=== PATIENT | female | born 1990 | race American Indian/Alaskan Native ===

== ENCOUNTER 2017-02-06 06:01 | Emergency (ER) | payer SELFPAY ==
[2017-02-06] MEDS ORDERED: TYLENOL ONE (06:09)
[2017-02-06] MEDS ORDERED: TYLENOL PO ONE (06:23)
[2017-02-06] MEDS ORDERED: NORVASC PO ONE (08:53)
--- NOTE | 2017-02-06 09:21 | Emergency Department Report ---
- General Chief complaint: Skin/Abscess/Foreign Body Stated complaint: INSECT BITE/FOREHEAD SWOLLEN Time Seen by Provider: 02/06/17 08:52 Source: patient Mode of arrival: Ambulatory Limitations: No Limitations - History of Present Illness Initial comments: Patient presents today with what she describes as an insect bite to the right forehead she denies any drainage from the area and admits to pruritus. She states that she woke up Saturday morning which was 3 days ago with a small bump and it has progressively gotten larger. She denies seeing any insect and just assumes that it was an insect. She does admit to swelling of the right quaker area and admits to numbness on superior aspect of the right ear. She denies fever, chills, nausea, vomiting, abdominal pain. She has been taken Benadryl for the itch. She admits to the pain now a 06/03. She also presents with blood pressure of 158/116, she states she has not been treated for hypertension in the past. She does states that it is always elevated. She does not have a primary care physician. MD complaint: rash -: Sudden Tetanus Up to Date: yes Location: head Severity: moderate Severity scale (0 -10): 7 Quality: aching Consistency: constant Improves with: none Worsens with: none Associated symptoms: denies other symptoms, itching Treatments Prior to Arrival: none - Related Data Previous Rx's Medication Instructions Recorded Last Taken Type Hydroxyzine HCl 25 mg PO BID #10 tablet 02/06/17 Unknown Rx Sulfamethoxazole/Trimethoprim 1 each PO BID #20 tablet 02/06/17 Unknown Rx [Bactrim DS TAB] amLODIPine [Norvasc] 5 mg PO DAILY #30 tab 02/06/17 Unknown Rx Allergies Allergy/AdvReac Type Severity Reaction Status Date / Time No Known Allergies Allergy Verified 02/06/17 06:17 Abscess Boil HPI - HPI Chief Complaint: Skin/Abscess/Foreign Body Stated Complaint: INSECT BITE/FOREHEAD SWOLLEN Time Seen by Provider: 02/06/17 08:52 Home Medications: Previous Rx's Medication Instructions Recorded Last Taken Type Hydroxyzine HCl 25 mg PO BID #10 tablet 02/06/17 Unknown Rx Sulfamethoxazole/Trimethoprim 1 each PO BID #20 tablet 02/06/17 Unknown Rx [Bactrim DS TAB] amLODIPine [Norvasc] 5 mg PO DAILY #30 tab 02/06/17 Unknown Rx Allergies/Adverse Reactions: Allergies Allergy/AdvReac Type Severity Reaction Status Date / Time No Known Allergies Allergy Verified 02/06/17 06:17 ED Review of Systems ROS: Stated complaint: INSECT BITE/FOREHEAD SWOLLEN Other details as noted in HPI Constitutional: denies: chills, fever Eyes: denies: eye pain, eye discharge, vision change ENT: denies: ear pain, throat pain Respiratory: denies: cough, shortness of breath, wheezing Cardiovascular: denies: chest pain, palpitations Gastrointestinal: denies: abdominal pain, nausea, vomiting, diarrhea Genitourinary: denies: urgency, dysuria, discharge Musculoskeletal: denies: back pain, joint swelling, arthralgia Skin: rash, pruritus. denies: lesions Neurological: denies: headache, weakness, paresthesias ED Past Medical Hx - Past Medical History Previous Medical History?: Yes Hx Hypertension: Yes Hx Asthma: Yes Additional medical history: Obesity - Surgical History Past Surgical History?: No - Social History Smoking Status: Never Smoker Substance Use Type: None - Medications Home Medications: Home Medications Medication Instructions Recorded Confirmed Last Taken Type Hydroxyzine HCl 25 mg PO BID #10 tablet 02/06/17 Unknown Rx Sulfamethoxazole/Trimethoprim 1 each PO BID #20 tablet 02/06/17 Unknown Rx [Bactrim DS TAB] amLODIPine [Norvasc] 5 mg PO DAILY #30 tab 02/06/17 Unknown Rx ED Physical Exam - General Limitations: No Limitations General appearance: alert, in no apparent distress - Head Head exam: Present: atraumatic, normocephalic - Expanded Head Exam Expanded Head exam: Present: other (right right forehead with induration of approximately 2 cm in diameter and red) - Eye Eye exam: Present: normal appearance, PERRL, EOMI - ENT ENT exam: Present: mucous membranes moist, TM's normal bilaterally - Expanded ENT Exam Expanded Ear exam: Present: normal external inspection Mouth exam: Present: normal external inspection Teeth exam: Present: normal inspection Throat exam: Positive: normal inspection - Neck Neck exam: Present: normal inspection, full ROM, lymphadenopathy (right cervical nodes) - Respiratory Respiratory exam: Present: normal lung sounds bilaterally. Absent: respiratory distress, wheezes, rales, rhonchi - Cardiovascular Cardiovascular Exam: Present: regular rate, normal rhythm. Absent: systolic murmur, diastolic murmur, rubs, gallop - GI/Abdominal GI/Abdominal exam: Present: soft, normal bowel sounds. Absent: tenderness - Extremities Exam Extremities exam: Present: normal inspection, full ROM - Neurological Exam Neurological exam: Present: alert, oriented X3, CN II-XII intact, normal gait - Psychiatric Psychiatric exam: Present: normal affect, normal mood - Skin Skin exam: Present: warm, dry, intact, normal color, rash (stated above) ED Course Vital Signs 02/06/17 02/06/17 02/06/17 06:06 08:58 09:07 Temperature 98.1 F Pulse Rate 88 69 69 Respiratory 16 Rate Blood Pressure 166/108 Blood Pressure 158/116 166/108 [Right] O2 Sat by Pulse 100 Oximetry ED Medical Decision Making - Lab Data Result diagrams: 02/06/17 09:00 02/06/17 09:00 - Medical Decision Making Patient presents with reported induration on the right forehead 3 days. Due to this area being red and swollen with lymphadenopathy I will give Bactrim DS twice a day 10 days. I will advise her to follow up in the ED if worsening symptoms, fever, chills, nausea, vomiting. She also is noted to have an elevated blood pressure 158/116 have given her Norvasc 5 mg and will give her a prescription for 1 month. I'll also advise her to follow-up with [place] outpatient [facility] for further evaluation of high blood pressure. I have advised her that increased blood pressure are not controlled over a long period of time can cause stroke, heart attack, kidney failure. Patient states she understands. - Differential Diagnosis cellulitis, abscess, hypertension Critical Care Time: No Critical care attestation.: If time is entered above; I have spent that time in minutes in the direct care of this critically ill patient, excluding procedure time. ED Disposition Clinical Impression: Cellulitis of head or scalp, Lymphadenopathy, anterior cervical, Hypertension Disposition: DISCHARGED TO HOME OR SELFCARE Is pt being admited?: No Does the pt Need Aspirin: No Condition: Stable Instructions: Hypertension (ED), Lymphadenopathy (ED), Cellulitis (ED) Additional Instructions: Take her antibiotic medication as prescribed. Follow up in the ED if nausea, vomiting, fever, chills. Please follow-up with [facility] outpatient clinic for your elevated blood pressure. Please be advised that elevated blood pressure not controlled can lead to heart attack, stroke, kidney failure. Prescriptions: amLODIPine [Norvasc] 5 mg PO DAILY #30 tab Hydroxyzine HCl 25 mg PO BID #10 tablet Sulfamethoxazole/Trimethoprim [Bactrim DS TAB] 1 each PO BID #20 tablet Referrals: PRIMARY CARE, [Primary Care Provider] - 3-5 Days Forms: Work/School Release Form(ED) Time of Disposition: 09:48
[2017-02-06 09:30] LABS: Basophils % (Auto) 0.3 % (0.0-1.8); Eosinophils % (Auto) 3.5 % (0.0-4.3); Hemoglobin 13.1 gm/dl (10.1-14.3); White Blood Count 6.3 K/mm3 (4.5-11.0)
[2017-02-06 09:33] LABS: Anion Gap 20 mmol/L; BUN/Creatinine Ratio 18.75; Blood Urea Nitrogen 15 mg/dL (7-17); Calcium 9.3 mg/dL (8.4-10.2); Carbon Dioxide 19 mmol/L (22-30); Chloride 100.7 mmol/L (98-107); Glucose 82 mg/dL (65-100); Potassium 4.9 mmol/L (3.6-5.0); Sodium 135 mmol/L (137-145)
[2017-02-06 09:37] LABS: Mean Corpuscular Hemoglobin 26 pg (28-32); Mean Corpuscular Volume 83 fl (79-97); Red Blood Count 5.09 M/mm3 (3.65-5.03)
[2017-02-06 09:38] LABS: Mean Corpuscular HGB Conc 32 % (30-34); Platelet Count 352 K/mm3 (140-440); Red Cell Distribution Width 16.4 % (13.2-15.2)
[2017-02-06 10:02] VITALS: BP 159/89
== END 2017-02-06 10:02 | disposition home or self-care (01) ==
LOC: ED 06:01
DX: L03.811 Cellulitis of head [any part, except face] (principal); R59.1 Generalized enlarged lymph nodes; I10 Essential (primary) hypertension; J45.909 Unspecified asthma, uncomplicated; E66.9 Obesity, unspecified
CPT/HCPCS: 36415; 80048; 85025; 99283

== ENCOUNTER 2017-12-14 | Emergency (ER) | payer SELFPAY ==
[2017-12-14 01:16] VITALS: BP 130/80
[2017-12-14 04:31] LABS: HCG Qualitative,Urine Negative (Negative)
[2017-12-14 04:36] LABS: Bacteria,Urine 1+ /HPF (Negative); Bilirubin,Urine NEG (Negative); Blood,Urine NEG (Negative); Color,Urine Yellow (Yellow); Mucus,Urine 2+ /HPF; Nitrite,Urine NEG (Negative); Protein,Urine <15 mg/dL mg/dL (Negative); Urobilinogen,Urine < 2.0 mg/dL (<2.0)
== END 2017-12-14 11:15 | disposition left against medical advice (07) ==
LOC: ED
DX: Z53.21 Procedure and treatment not carried out due to patient leaving prior to being seen by health care provider (principal)
CPT/HCPCS: 81001; 81025